=== PATIENT | female | born 1980 | race Hispanic/Latino ===

== ENCOUNTER 2022-03-29 11:22 | Emergency (ER) | payer SELFPAY | END 2022-03-29 12:40 | disposition home or self-care (01) | LOC: CSHERS 11:22 | DX: L72.0 Epidermal cyst (principal) | CPT/HCPCS: 70450 ==

== ENCOUNTER 2022-04-03 09:45 | Emergency (ER) | payer SELFPAY | END 2022-04-03 10:20 | disposition home or self-care (01) | LOC: CSHERS 09:45 | DX: M25.562 Pain in left knee (principal) | CPT/HCPCS: 99281 ==

== ENCOUNTER 2022-04-14 19:22 | Emergency (ER) | payer SELFPAY | END 2022-04-14 22:34 | disposition left against medical advice (07) | LOC: CSHERS 19:22 | DX: Z53.21 Procedure and treatment not carried out due to patient leaving prior to being seen by health care provider (principal) ==

== ENCOUNTER 2022-04-15 19:13 | Emergency (ER) | payer SELFPAY ==
[2022-04-15] MEDS ORDERED: Lidocaine 1% (PF) 30 ML VIAL ONE (20:30)
[2022-04-15 20:51] LABS: #Eosinphils 0.1 10x3/uL (0.0-0.5); #Monocytes 0.8 10x3/uL (0.0-1.1); #Neutrophils 4.6 10x3/uL (1.5-8.4); %Basophils 0.4 % (0.0-2.0); %Eosinophils 1.8 % (0.0-6.0); %Lymphocytes 27.2 % (18.0-47.0); %Monocytes 10.1 % (0.0-10.0); %Neutrophils 60.2 % (40.0-75.0); Hemoglobin 10.2 g/dL (12.0-15.5); Mean Corpuscular HGB CONC 32.1 g/dL (32.0-36.0); Mean Corpuscular Hemoglobin 24.5 pg (27.0-33.0); Mean Corpuscular Volume 76.3 fl (81.6-98.3); Mean Platelet Volume 10.1 fl (7.4-10.4); Platelet Count 351 10x3/uL (150-450); RBC Distribution Width 15.5 % (11.5-14.5); Red Blood Cell (RBC) Count 4.17 10x6/uL (3.90-5.03); White Blood Cell (WBC) Count 7.6 10x3/uL (3.5-10.5)
[2022-04-15 20:54] LABS: BHCG - Serum Negative (NEGATIVE); Pregs Control Background? CLEAR/WHITE (CLR/WHITE); Pregs Control Bar Appear? YES (CONTROL BAR)
[2022-04-15 21:00] LABS: ALT (SGPT) 13 U/L (8-55); AST (SGOT) 19 U/L (5-34); Albumin 4.2 g/dL (3.5-5.0); Alkaline Phosphatase 101 U/L (40-110); Anion Gap 14 mmol/L (10-20); BUN (Urea Nitrogen) 19 mg/dL (7.0-18.7); Bilirubin, Total 0.2 mg/dL (0.2-1.2); Calc. Creatinine Clearance 0 mL/min (70-130); Calcium 9.2 mg/dL (7.8-10.44); Carbon Dioxide 23 mmol/L (22-29); Chloride 104 mmol/L (98-107); Estimated GFR 112; Globulin 3.4 g/dL (2.4-3.5); Glucose 88 mg/dL (70-105); Potassium 3.6 mmol/L (3.5-5.1); Protein, Total 7.6 g/dL (6.0-8.3); Sodium 137 mmol/L (136-145)
== END 2022-04-15 21:46 | disposition home or self-care (01) ==
LOC: CSHERS 19:13
DX: B35.0 Tinea barbae and tinea capitis (principal)
CPT/HCPCS: 10060; 80053; 84703; 85025; J2001

== ENCOUNTER 2022-12-21 13:53 | Emergency (ER) | payer SELFPAY ==
[2022-12-21 14:46] LABS: #Basophils 0.1 10x3/uL (0.0-0.2); #Eosinphils 0.2 10x3/uL (0.0-0.5); #Monocytes 0.7 10x3/uL (0.0-1.1); #Neutrophils 8.7 10x3/uL (1.5-8.4); %Basophils 0.4 % (0.0-2.0); %Eosinophils 1.2 % (0.0-6.0); %Lymphocytes 20.7 % (18.0-47.0); %Monocytes 5.9 % (0.0-10.0); %Neutrophils 71.5 % (40.0-75.0); Hemoglobin 12.3 g/dL (12.0-15.5); Mean Corpuscular HGB CONC 32.6 g/dL (32.0-36.0); Mean Corpuscular Hemoglobin 27.5 pg (27.0-33.0); Mean Corpuscular Volume 84.3 fl (81.6-98.3); Platelet Count 353 10x3/uL (150-450); RBC Distribution Width 15.9 % (11.5-14.5); Red Blood Cell (RBC) Count 4.47 10x6/uL (3.90-5.03); White Blood Cell (WBC) Count 12.2 10x3/uL (3.5-10.5)
[2022-12-21 14:57] LABS: ALT (SGPT) 11 U/L (8-55); AST (SGOT) 15 U/L (5-34); Albumin 4.2 g/dL (3.5-5.0); Alkaline Phosphatase 76 U/L (40-110); Anion Gap 12 mmol/L (10-20); BUN (Urea Nitrogen) 18 mg/dL (7.0-18.7); Bilirubin, Total 0.3 mg/dL (0.2-1.2); Calc. Creatinine Clearance 0 mL/min (70-130); Calcium 8.9 mg/dL (7.8-10.44); Carbon Dioxide 26 mmol/L (22-29); Chloride 105 mmol/L (98-107); Estimated GFR 113; Globulin 3.2 g/dL (2.4-3.5); Glucose 85 mg/dL (70-105); Potassium 3.5 mmol/L (3.5-5.1); Protein, Total 7.4 g/dL (6.0-8.3); Sodium 139 mmol/L (136-145)
== END 2022-12-21 15:54 | disposition home or self-care (01) ==
LOC: CSHERS 13:53
DX: K92.2 Gastrointestinal hemorrhage, unspecified (principal)
CPT/HCPCS: 80053; 85025; 99284

== ENCOUNTER 2023-03-17 13:12 | Emergency (ER) | payer SELFPAY ==
[2023-03-17] MEDS ORDERED: Lidocaine 1% PF 5 ML VIAL ONE (14:09)
== END 2023-03-17 15:11 | disposition home or self-care (01) ==
LOC: CSHERS 13:12
DX: L02.811 Cutaneous abscess of head [any part, except face] (principal)
CPT/HCPCS: 10060